=== PATIENT | female | born 1955 | race Caucasian/White ===

== ENCOUNTER 2018-05-02 10:42 | Emergency (ER) | payer BC ==
[2018-05-02] MEDS ORDERED: ONDANSETRON HCL IV 4 MG/2 ML VIAL IVP ONE (10:45)
[2018-05-02] MEDS ORDERED: 0.9 % SODIUM CHLORIDE 1,000 ML BAG IV ONE ×2 (10:45→11:22)
--- NOTE | 2018-05-02 10:50 | Emergency Department Record ---
History of Present Illness - General Chief complaint: Vomiting Stated complaint: VOMITTING Time Seen by Provider: 05/02/18 10:44 Source: Patient Mode of Arrival: Ambulatory Limitations: No limitations - History of Present Illness Initial comments: 62 yo female presents with nausea that started Saturday evening. The nausea with vomiting continued into this morning. No diarrhea or abdominal pain. She has sinus pressure and drainage as well. She reports a history of COPD that is at its baseline. She has Crohn's that is also at its baseline with some loose stools that are normal for her. No abdominal pain or blood. No fever. No dysuria. MD complaint: Nausea, Vomiting -: Days(s) (2) Description of Vomiting: Watery Description of Diarrhea: Water Location: Other Radiation: None Severity: Mild Quality: Cramping Consistency: Intermittent Improves with: None Worsens with: Eating Context: Other Associated Symptoms: Cough (chronic unchanged), Loss of appetite, Malaise, Myalgias - Related Data Home Medications Medication Instructions Recorded Confirmed Last Taken Prednisone 5 mg PO DAILY 05/02/18 05/02/18 04/30/18 Previous Rx's Medication Instructions Recorded Albuterol Sulfate 0.083% [Neb] 2.5 mg INH RESP.Q2H PRN #30 01/29/18 nebulization solution Albuterol Sulfate [Proair Hfa] 1 - 2 inhaler IH .EVERY 4-6 HOURS 01/29/18 PRN #1 puff Ipratropium/Albuterol [Duoneb] 3 ml INH Q4H #180 ampul.neb 01/29/18 Sodium Chloride 7% For INH 4 ml INH DAILY PRN #15 vial.neb 01/29/18 [Hyper-Akash] Ondansetron [Zofran Odt] 4 mg PO Q8H #15 tab.rapdis 05/02/18 Allergies Allergy/AdvReac Type Severity Reaction Status Date / Time penicillin V Allergy Intermediate RASH Unverified 05/02/18 11:03 Review of Systems Constitutional: Reports: Fever (subjective but no temperature was taken), Malaise. Denies: Chills Eyes: Denies: Eye discharge, Eye pain, Photophobia, Vision change ENT: Reports: Congestion. Denies: Ear pain Respiratory: Reports: Cough, Wheezes. Denies: Dyspnea, Hemoptysis, Stridor Cardiovascular: Denies: Chest pain, Palpitations, Syncope Endocrine: Reports: Fatigue Gastrointestinal: Reports: Nausea, Vomiting. Denies: Abdominal pain, Constipation, Diarrhea, Hematemesis, Hematochezia, Melena Genitourinary: Denies: Dysuria, Frequency, Hematuria, Urgency Musculoskeletal: Reports: Myalgia. Denies: Arthralgia, Back pain Skin: Denies: Bruising, Change in color, Rash Neurological: Denies: Confusion, Headache, Numbness, Tingling, Vertigo, Weakness Psychiatric: Denies: Anxiety Hematological/Lymphatic: Denies: Blood Clots, Easy bleeding, Easy bruising, Swollen glands Past Medical History - SOCIAL HISTORY Smoking Status: Current every day smoker Drug Use: None - RESPIRATORY Hx Respiratory Disorders: Yes Hx Asthma: No Hx Bronchitis: No Hx COPD: Yes Hx Dyspnea: No Hx Pneumonia: No Hx Pulmonary Embolism: No Hx Sleep Apnea: No Hx of CPAP: No - CARDIOVASCULAR Hx Cardio Disorders: No - NEURO Hx Neuro Disorders: No - GI Hx GI Disorders: Yes Hx Abdominal Pain: Yes Hx Celiac Disease: No Hx Crohn's Disease: Yes Hx Diverticulitis: No Hx GI Bleed: No Hx Reflux: No Hx Hepatitis/Jaundice: No Hx Hiatal Hernia: No Hx Irritable Bowel: No Hx Liver Disease: No Hx Nausea/Vomiting: No Hx Obstructive Bowel: No Hx Pancreatitis: No Hx Rectal Bleeding: No Hx Ulcer: No Hx Wt Loss/Wt Gain: No Hx of Polyps: No - Hx Genitourinary Disorders: No - ENDOCRINE Hx Endocrine Disorders: No - MUSCULOSKELETAL Hx Musculoskeletal Disorders: No - PSYCH Hx Psych Problems: No - HEMATOLOGY/ONCOLOGY Hx Hematology/Oncology Disorders: No Family Medical History Hx Alcohol Use: Children Hx Cancer: Mother Hx Dementia: Father Hx Resp Disorders: Father Hx Seizures: Children Hx Stroke: Father Physical Exam - General General Appearance: Alert, Oriented x3, Cooperative, No acute distress Limitations: No limitations - Head Head exam: Atraumatic, Normal inspection - Eye Eye exam: Normal appearance. negative: Conjunctival injection, Scleral icterus - ENT ENT exam: Normal exam, Mucous membranes moist, Normal orophraynx Ear exam: Normal external inspection Nasal Exam: Normal inspection Mouth exam: Normal external inspection - Neck Neck exam: Normal inspection - Respiratory Respiratory exam: Decreased breath sounds, Prolonged expiratory, Wheezes (mild expiratory, non labored). negative: Normal lung sounds bilaterally, Accessory muscle use, Respiratory distress, Rhonchi - Cardiovascular Cardiovascular Exam: Regular rate, Normal rhythm, Normal heart sounds - GI/Abdominal GI/Abdominal exam: Soft. negative: Distended, Guarding, Rebound, Rigid, Tenderness - Rectal Rectal exam: Deferred - exam: Deferred - Extremities Extremities exam: Normal inspection. negative: Pedal edema, Tenderness - Back Back exam: Denies: CVA tenderness (R), CVA tenderness (L) - Neurological Neurological exam: Alert, Oriented X3 - Psychiatric Psychiatric exam: Normal affect, Normal mood - Skin Skin exam: Dry, Intact, Normal color, Warm Course - Reevaluation(s) Reevaluation #1: 05/02/18 11:53 The labs were reviewed The CBC demonstrated WBC of 16.7 The CMP AG was 20, TBili was 1.5 but normal LFT's and Lipase 05/02/18 11:55 05/02/18 12:02 On recheck the patient is feeling better. She states her nausea is now controlled. She has no abdominal pain. On palpation the abdomen is very soft, it is non tender. 05/02/18 12:19 The patient is refusing a CT at this time. She is feeling improved. She wants to try a PO challenge first. PO challenged ordered. 05/02/18 13:02 The patient is tolerating soup well She was given the option for Observation for IVF and anti-emetics. She declined. She states she is feeling better and she wants to be discharged. She is getting IV KCL at this time resting comfortably. 05/02/18 16:47 The KCL is finished She still has no pain or nausea She is ready for DC We again discussed home dehydration care, reasons for immediate return and a recheck tomorrow if not doing very well. Medical Decision Making - Lab Data Result diagrams: 05/02/18 10:50 05/02/18 10:50 Disposition Disposition: Discharge Clinical Impression: Hypokalemia Vomiting Qualifiers: Vomiting type: unspecified Disposition: Home, Self-Care Condition: (1) Good Instructions: Dehydration (ED), Acute Nausea and Vomiting (ED) Additional Instructions: Return to ED if your symptoms worsen or if you have any new concerns. Take the prescriptions provided today as directed. Follow-up with your family doctor at the next available appointment. Review the final Emergency Record and test results with your doctor on follow up Return in the next 12 to 24 hours if any vomiting returns, fever, or pain Prescriptions: Ondansetron [Zofran Odt] 4 mg PO Q8H #15 tab.rapdis Forms: Patient Portal Access Time of Disposition: 16:49 Quality - Quality Measures Quality Measures: N/A - Blood Pressure Screening Does Patient Have Any of the Following: No Blood Pressure Classification: Normal BP Reading Systolic Measurement: 107 Diastolic Measurement: 76 Screening for High Blood Pressure: < Normal BP, F/U Not Required > [G8783]
[2018-05-02 11:23] LABS: HEMATOCRIT 48.6 % (35.0-47.0); HEMOGLOBIN 16.4 gm/dl (11.6-16.0); MEAN CELL VOLUME 89.7 fl (81-97); MEAN CORPUSCULAR HGB CONC 33.7 g/dl (32-36); MEAN PLATELET VOLUME 9.4 fl (7.4-10.4); PLATELET COUNT 313 K/uL (130-400); RED BLOOD COUNT 5.42 M/uL (3.80-5.40); RED CELL DISTRIBUTION WIDTH 14.4 % (11.5-14.5); WHITE BLOOD COUNT W/O DIFF 16.7 K/uL (4.2-12.2)
[2018-05-02 11:29] LABS: MEAN CORPUSCULAR HEMOGLOBIN 30.2 pg (27-33)
[2018-05-02 11:34] LABS: BLOOD UREA NITROGEN 20 mg/dL (8-23)
[2018-05-02 11:35] LABS: CREATININE 0.9 mg/dL (0.5-0.9); EST GLOMERULAR FILTRATION RATE > 60 mL/min; TOTAL PROTEIN 7.1 g/dL (6.6-8.7)
[2018-05-02 11:37] LABS: GLUCOSE,RANDOM 184 mg/dL (74-109)
[2018-05-02 11:40] LABS: ALB/GLOB RATIO 1.2 (1.1-1.8); ALBUMIN 3.8 g/dL (4.0-5.0); ALKALINE PHOSPHATASE 94 U/L (35-104); ALT/SGPT 10 U/L (<33); AST/SGOT 18 U/L (10.0-35.0); LIPASE 13 U/L (13-60)
[2018-05-02] MEDS ORDERED: POTASSIUM BICARB./CIT AC 25 MEQ EFF.TAB PO STA (12:03)
[2018-05-02] MEDS ORDERED: SOD CHLOR 0.9% WITH KCL 40MEQ 40 MEQ/1,000 ML IV.SOLN IV ONE (12:13)
[2018-05-02 15:17] LABS: URINE APPEARANCE CLEAR; URINE BILIRUBIN NEGATIVE (NEGATIVE); URINE BLOOD TRACE-I (NEGATIVE); URINE COLOR YELLOW; URINE GLUCOSE (UA) NEGATIVE (NEGATIVE); URINE KETONE NEGATIVE (NEGATIVE); URINE LEUKOCYTE ESTERASE NEGATIVE (NEGATIVE); URINE NITRITE NEGATIVE (NEGATIVE); URINE PROTEIN NEGATIVE (NEGATIVE); URINE UROBILINOGEN 0.2 E.U./dL (0.20 - 1.00)
[2018-05-02 15:31] LABS: URINE EPITHELIAL CELLS 0 - 2 (FEW); URINE WBC 0 - 2 (0-2/hpf)
== END 2018-05-02 17:10 | disposition home or self-care (01) ==
LOC: ER 10:42
DX: E87.6 Hypokalemia (principal); E86.0 Dehydration; J44.9 Chronic obstructive pulmonary disease, unspecified; F17.210 Nicotine dependence, cigarettes, uncomplicated
CPT/HCPCS: 99284 ×2; 96374; 96361; 83690; 80053; 81001; 85027; J2405; J7030

== ENCOUNTER 2019-12-17 04:39 | Observation (INO) | payer MEDICARE, OTHER ==
[2019-12-17] MEDS ORDERED: 0.9 % SODIUM CHLORIDE 1,000 ML BAG IV ONE (05:01)
[2019-12-17] MEDS ORDERED: ONDANSETRON HCL IV 4 MG/2 ML VIAL IVP ONE (05:02)
[2019-12-17] MEDS: IPRATROPIUM/ALBUTEROL (0.5MG/3MG) NEB INH SCH ×6 (05:05→21:55)
--- NOTE | 2019-12-17 05:09 | Emergency Department Record ---
History of Present Illness - General Chief complaint: Flu Like Symptoms Stated complaint: FLU LIKE SYMPTOMS Time Seen by Provider: 12/17/19 04:54 Source: Patient Mode of Arrival: Ambulatory Limitations: No limitations - History of Present Illness Initial comments: The patient is here due to not feeling well for 4 days. She has had 4 days of frequent nausea, vomiting, and loose watery stools. The patient was coughing for the last few days but that is better today She has had mild SOB at times and does have sputum production at times. The patient denies any CP, back pain, or VARNER presently and she denies any fever. She was exposed to Influenza recently and did not get a flu shot. MD Complaint: Generalized weakness Onset/Timin -: Days(s) Location: Generalized Severity: Moderate Severity scale (1-10): 5 Quality: Aching Consistency: Getting worse Improves with: None Worsens with: None Associated Symptoms: Fever/chills, Headaches, Nausea/vomiting, Shortness of breath - [place] Coma Scale Eye Response: (4) Open spontaneously Motor Response: (6) Obeys commands Verbal Response: (5) Oriented Mahi Total: 15 - Related Data Previous Rx's Medication Instructions Recorded Ipratropium/Albuterol [Duoneb] 3 ml INH Q4H #180 ampul.neb 01/29/18 Allergies Allergy/AdvReac Type Severity Reaction Status Date / Time penicillin V Allergy Intermediate RASH Verified 12/17/19 05:41 Travel/Exposure Screening - Travel/Exposure Within Last 30 Days Have you traveled within the last 30 days?: No - Travel/Exposure Within Last Year Have you traveled outside the [place] in the last year?: No - Additonal Travel/Exposure Details Have you been exposed to anyone with a communicable illness?: No - Travel Symptoms Symptom Screening: None Review of Systems Constitutional: Reports: Malaise. Denies: Chills, Fever, Other ENT: Reports: Congestion Respiratory: Reports: Cough, Dyspnea. Denies: Hemoptysis Cardiovascular: Denies: Chest pain Endocrine: Reports: Fatigue Gastrointestinal: Reports: Diarrhea, Nausea, Vomiting Genitourinary: Denies: Dysuria Musculoskeletal: Denies: Arthralgia Skin: Denies: Bruising Past Medical History - SOCIAL HISTORY Smoking Status: Current every day smoker Alcohol Use: None Drug Use: None - RESPIRATORY Hx Respiratory Disorders: Yes Hx Asthma: No Hx Bronchitis: No Hx COPD: Yes Hx Dyspnea: No Hx Pneumonia: No Hx Pulmonary Embolism: No Hx Sleep Apnea: No Hx of CPAP: No - CARDIOVASCULAR Hx Cardio Disorders: Yes Hx Hypertension: Yes - NEURO Hx Neuro Disorders: No - GI Hx GI Disorders: Yes Hx Abdominal Pain: Yes Hx Celiac Disease: No Hx Crohn's Disease: Yes Hx Diverticulitis: No Hx GI Bleed: No Hx Reflux: No Hx Hepatitis/Jaundice: No Hx Hiatal Hernia: No Hx Irritable Bowel: No Hx Liver Disease: No Hx Nausea/Vomiting: No Hx Obstructive Bowel: No Hx Pancreatitis: No Hx Rectal Bleeding: No Hx Ulcer: No Hx Wt Loss/Wt Gain: No Hx of Polyps: No - Hx Genitourinary Disorders: No - ENDOCRINE Hx Endocrine Disorders: No - MUSCULOSKELETAL Hx Musculoskeletal Disorders: No - PSYCH Hx Psych Problems: No - HEMATOLOGY/ONCOLOGY Hx Hematology/Oncology Disorders: No Family Medical History Any Significant Family History?: Yes Hx Alcohol Use: Children Hx Cancer: Mother Hx Dementia: Father Hx Resp Disorders: Father Hx Seizures: Children Hx Stroke: Father Physical Exam - General General Appearance: Alert, Oriented x3, Cooperative, No acute distress (The patient is speaking in full sentences in no distress. She intially was hypoxic on presentation but was not wearing her home O2. ) - Head Head exam: Atraumatic, Normocephalic, Normal inspection - Eye Eye exam: Normal appearance - ENT Throat exam: Normal inspection. negative: Tonsillar erythema, Tonsillar exudate - Neck Neck exam: Normal inspection, Full ROM. negative: Tenderness - Respiratory Respiratory exam: Decreased breath sounds, Wheezes (few at the bases.). negative: Normal lung sounds bilaterally, Accessory muscle use, Rhonchi, Stridor - Cardiovascular Cardiovascular Exam: Regular rate, Normal rhythm, Normal heart sounds. negative: Diastolic murmur, Systolic murmur - GI/Abdominal GI/Abdominal exam: Soft, Normal bowel sounds. negative: Tenderness - Extremities Extremities exam: Normal inspection, Full ROM, Normal capillary refill. negative: Tenderness - Neurological Neurological exam: Alert, Normal gait. negative: Abnormal gait, Motor sensory deficit - Psychiatric Psychiatric exam: negative: Anxious Course Vital Signs 12/17/19 12/17/19 04:51 05:02 Temperature 98.8 F Pulse Rate [ 119 H 74 Pulse Ox Probe] Respiratory 28 H Rate Blood Pressure 137/92 [Left Arm] Pulse Ox 82 L 98 - Reevaluation(s) Reevaluation #1: The patient is doing better at this time. She is still mildly dyspneic with decreased breath sounds on exam. She is coughing up colored sputum and does have a bandemia on her CBC and a high CRP. The CXR does appear consistent with COPD but without any obvious acute infiltrate but I do believe due to her mild dehydration she probably will develop one with hydration. We will admit the patient to the hospital on IV Abx's and for further monitoring. 12/17/19 05:49 Reevaluation #2: The patient is doing better at this time. She is speaking in full sentences with a biox of 94% on 3 L of O2. On exam she is still wheezing mildly but feels improved from when she presented to the ER. 12/17/19 06:13 Medical Decision Making - Data Complexity MDM Data: Labs Ordered and/or Reviewed, X-Ray Ordered and/or Reviewed, EKG Ordered and/or Reviewed - Lab Data Result diagrams: 12/17/19 05:00 12/17/19 05:00 - EKG Data -: EKG Interpreted by Me EKG: No Acute Changes, Unchanged From Previous - Radiology Data Radiology results: Report reviewed (CXR: COPD) Disposition Disposition: Admit Clinical Impression: COPD exacerbation Disposition: Still a Patient at [facility] Decision to Admit: Admit from ER Decision to Admit Date: 12/17/19 Decision to Admit Time: 05:52 Accepting Physician: Sp Time Discussed w/Accepting Physician: 05:52 Condition: (2) Stable Forms: Patient Portal Access Time of Disposition: 05:52 Quality - Quality Measures Quality Measures: N/A - Blood Pressure Screening View Details: Yes Does Patient Have Any of the Following: No Blood Pressure Classification: Pre-Hypertensive BP Reading Systolic Measurement: 123 Diastolic Measurement: 76 Screening for High Blood Pressure: < Pre-Hypertensive BP, F/U Documented > [G8950] Pre-Hypertensive Follow-up Interventions: Referral to alternative/primary care provider.
[2019-12-17 05:11] LABS: ABSOLUTE NEUTROPHIL COUNT 9.19; BASO % 0.2 % (0-6); HEMOGLOBIN 17.1 gm/dl (11.6-16.0); LYMPH % 6.8 % (16-45); MEAN CELL VOLUME 87.7 fl (81-97); MEAN CORPUSCULAR HEMOGLOBIN 28.3 pg (27-33); MEAN CORPUSCULAR HGB CONC 32.3 g/dl (32-36); MEAN PLATELET VOLUME 9.2 fl (7.4-10.4); MONO % 5.2 % (0-9); PLATELET COUNT 247 K/uL (130-400); RED BLOOD COUNT 6.04 M/uL (3.80-5.40); WHITE BLOOD COUNT W/O DIFF 10.5 K/uL (4.2-12.2)
[2019-12-17 05:20] LABS: BLOOD UREA NITROGEN 15 mg/dL (8-23); CREATININE 0.7 mg/dL (0.5-0.9); EST GLOMERULAR FILTRATION RATE > 60 mL/min; LIPASE 14 U/L (13-60); TOTAL PROTEIN 7.2 g/dL (6.6-8.7)
[2019-12-17 05:22] LABS: GLUCOSE,RANDOM 149 mg/dL (74-109)
[2019-12-17 05:24] LABS: ANISOCYTOSIS 1+; PLATELET ESTIMATE NORMAL (NORMAL)
[2019-12-17 05:25] LABS: ALBUMIN 3.9 g/dL (4.0-5.0); ALKALINE PHOSPHATASE 84 U/L (35-104); ALT/SGPT 26 U/L (<33); AST/SGOT 46 U/L (10.0-35.0)
[2019-12-17 05:26] LABS: BILIRUBIN,DIRECT < 0.2 mg/dL (0-0.3); INFLUENZA A POSITIVE (NEGATIVE); INFLUENZA B NEGATIVE (NEGATIVE)
[2019-12-17] MEDS ORDERED: METHYLPREDNISOLONE PF 125MG/VIAL IVP ONE (05:36)
[2019-12-17] MEDS ORDERED: ALBUTEROL SULFATE (0.083%) 2.5 MG/3 ML NEB INH ONE (05:37)
--- NOTE | 2019-12-17 05:39 | RADIOLOGY REPORT ---
EXAMINATION: Two View Chest Radiographs EXAM DATE: 12/17/2019 5:35 AM TECHNIQUE: Frontal and lateral views INDICATION: cough COMPARISON: None ENCOUNTER: Not applicable FINDINGS: The heart, mediastinum, and pulmonary vasculature are normal. No lung consolidation or pleural effu sions are present. Lungs are hyperinflated. IMPRESSION: Hyperinflated lungs. No acute process Dictated by: Asuncion Amaral DO on 12/17/2019 5:37 AM. .
[2019-12-17] MEDS ORDERED: LEVOFLOXACIN/D5W 750 MG/150 ML BAG IVPB ONE (05:54)
[2019-12-17] MEDS ORDERED: KETOROLAC 30 MG/ML VIAL IVP ONE (06:06)
[2019-12-17] MEDS ORDERED: IPRATROPIUM/ALBUTEROL (0.5MG/3MG) NEB INH SCH (07:55)
[2019-12-17] MEDS ORDERED: ACETAMINOPHEN 325 MG TAB PO PRN (07:55)
[2019-12-17] MEDS ORDERED: 0.9 % SODIUM CHLORIDE 1000ML 1,000 ML IV ONE (07:55)
[2019-12-17] MEDS: MONTELUKAST SODIUM 10MG TABLET PO SCH (09:27)
[2019-12-17] MEDS: LORATADINE 10 MG TABLET PO SCH (09:28)
[2019-12-17] MEDS: TRIAMTERENE 37.5/HCTZ 25 CAPSULE PO SCH (09:28)
[2019-12-17] MEDS ORDERED: ALBUTEROL SULFATE (0.083%) 2.5 MG/3 ML NEB INH PRN (10:02)
--- NOTE | 2019-12-17 10:39 | History & Physical ---
History of Present Illness - Date of Service Date of Service for History & Physical: 12/17/19 - History of Present Illness Admitting Diagnosis: 1. Acute COPD Exacerbation with Influenza. History of Present Illness: 63 year old female patient presented to ED for complaints of increased SOB and cough worsening over the last 4 days. Patient noted a few episodes of nausea/vomiting/diarrhea as well, but reports that has resolved. Notes her grandson was diagnosed with influenza over the weekend. Patient reports a productive cough of thick sputum. Denies CP, headache, fever, chills, or abdominal pain. Patient reports a PMH of COPD with intermittent home oxygen use and HTN. PCP: Stephanie Guthrie NP ED Course: CXR: hyperinflated lungs, no acute process Influenza A positive WBC 10.5, bands 13 CRP 18.17 Levaquin 750mg IVPB q24h 12/17/19: Patient A&O x 4, resting comfortably in bed. Mild conversational dyspnea with occasional cough noted. Reports mild improvement in symptoms since admission. Travel/Exposure Screening - Travel/Exposure Within Last 30 Days Have you traveled within the last 30 days?: No - Travel/Exposure Within Last Year Have you traveled outside the [place] in the last year?: No - Additonal Travel/Exposure Details Have you been exposed to anyone with a communicable illness?: No - Travel Symptoms Symptom Screening: None Review of Systems Reviewed: No additional complaints except as noted below Constitutional: Reports: Malaise. Denies: Chills, Fever, Other ENT: Reports: Congestion Respiratory: Reports: Cough, Dyspnea. Denies: Hemoptysis Cardiovascular: Denies: Chest pain Endocrine: Reports: Fatigue Gastrointestinal: Reports: Diarrhea, Nausea, Vomiting Genitourinary: Denies: Dysuria Musculoskeletal: Denies: Arthralgia Skin: Denies: Bruising Past Medical History - SOCIAL HISTORY Smoking Status: Current every day smoker Alcohol Use: None Drug Use: None - RESPIRATORY Hx Respiratory Disorders: Yes Hx Asthma: No Hx Bronchitis: No Hx COPD: Yes Hx Dyspnea: No Hx Pneumonia: No Hx Pulmonary Embolism: No Hx Sleep Apnea: No Hx of CPAP: No - CARDIOVASCULAR Hx Cardio Disorders: Yes Hx Hypertension: Yes - NEURO Hx Neuro Disorders: No - GI Hx GI Disorders: Yes Hx Abdominal Pain: Yes Hx Celiac Disease: No Hx Crohn's Disease: Yes Hx Diverticulitis: No Hx GI Bleed: No Hx Reflux: No Hx Hepatitis/Jaundice: No Hx Hiatal Hernia: No Hx Irritable Bowel: No Hx Liver Disease: No Hx Nausea/Vomiting: No Hx Obstructive Bowel: No Hx Pancreatitis: No Hx Rectal Bleeding: No Hx Ulcer: No Hx Wt Loss/Wt Gain: No Hx of Polyps: No - Hx Genitourinary Disorders: No - ENDOCRINE Hx Endocrine Disorders: No Hx Diabetes: No Hx Thyroid Disease: No - MUSCULOSKELETAL Hx Musculoskeletal Disorders: No - PSYCH Hx Psych Problems: No - HEMATOLOGY/ONCOLOGY Hx Hematology/Oncology Disorders: No Family Medical History Any Significant Family History?: Yes Hx Alcohol Use: Children Hx Cancer: Mother Hx Dementia: Father Hx Resp Disorders: Father Hx Seizures: Children Hx Stroke: Father H&P Meds/Allergies - Allergies Allergies: Allergies Allergy/AdvReac Type Severity Reaction Status Date / Time penicillin V Allergy Intermediate RASH Verified 12/17/19 05:41 - Home Medications Previous Rx's Medication Instructions Recorded Ipratropium/Albuterol [Duoneb] 3 ml INH Q4H #180 ampul.neb 01/29/18 - Active Medications Active Medications: Current Medications Acetaminophen (Tylenol 325mg) 650 mg PO Q6H PRN PRN Reason: PAIN - MILD(1-4)/FEVER Albuterol Sulfate (Albuterol Sulfate) 2.5 mg INH Q4H PRN PRN Reason: DIFFICULTY IN BREATHING Albuterol/Ipratropium (Duoneb) 3 ml INH RESP.Q4H.[facility] Last Admin: 12/17/19 08:46 Dose: Not Given Documented by: Sodium Chloride () 1,000 mls @ 100 mls/hr IV .Q10H ONE Stop: 12/17/19 17:54 Levofloxacin/Dextrose (Levaquin 500mg Ivpb) 500 mg in 100 mls @ 125 mls/hr IVPB Q24H [facility] Stop: 12/23/19 06:01 Loratadine (Claritin) 10 mg PO DAILY [facility] Last Admin: 12/17/19 09:28 Dose: 10 mg Documented by: Methylprednisolone Sodium Succinate (Solu-Medrol) 60 mg IVP DAILY [facility] Montelukast Sodium (Singulair) 10 mg PO QD [facility] Last Admin: 12/17/19 09:27 Dose: 10 mg Documented by: Triamterene/HCTZ (Dyazide) 1 udcap PO DAILY [facility] Last Admin: 12/17/19 09:28 Dose: 1 udcap Documented by: Physical Exam - Vital Signs Vital Signs: Vital Signs - Last 24 Hrs Temp Pulse Pulse Resp BP Pulse Ox 12/17/19 08:00 99.9 F H 61 17 106/74 94 L 12/17/19 07:31 99.2 F 111 H 20 94/68 92 L 12/17/19 06:25 99.9 F H 113 H 24 95/68 92 L 12/17/19 06:24 115 H 93 L 12/17/19 05:48 115 H 92 H 20 L 12/17/19 05:44 112 H 26 H 123/76 92 L 12/17/19 05:05 112 H 20 95 12/17/19 05:02 74 98 12/17/19 04:51 98.8 F 119 H 28 H 137/92 82 L - General General Appearance: Alert, Oriented x3, Cooperative, No acute distress Limitations: No limitations - Head Head exam: Atraumatic, Normocephalic, Normal inspection - Eye Eye exam: Normal appearance - ENT ENT exam: Mucous membranes moist Ear exam: Normal external inspection Nasal Exam: Normal inspection Throat exam: negative: Tonsillar erythema, Tonsillar exudate - Neck Neck exam: Normal inspection, Full ROM. negative: Tenderness - Respiratory Respiratory exam: Decreased breath sounds, Wheezes (scattered). negative: Normal lung sounds bilaterally, Accessory muscle use, Rhonchi, Stridor - Cardiovascular Cardiovascular Exam: Regular rate, Normal rhythm, Normal heart sounds. negative : Diastolic murmur, Systolic murmur Peripheral Pulses: 2+: Radial (R), Radial (L), Dorsalis Pedis (R), Dorsalis Pedis (L) - GI/Abdominal GI/Abdominal exam: Soft, Normal bowel sounds. negative: Tenderness - Rectal Rectal exam: Deferred - exam: Deferred - Extremities Extremities exam: Normal inspection, Full ROM, Normal capillary refill. negative: Pedal edema, Tenderness - Neurological Neurological exam: Alert, Oriented X3. negative: Abnormal gait, Motor sensory deficit - Psychiatric Psychiatric exam: Normal affect, Normal mood. negative: Anxious - Skin Skin exam: Dry, Normal color, Warm Results - Labs Result Diagrams: 12/17/19 05:00 12/17/19 05:00 Labs Last 24 Hours: Laboratory Results - last 24 hr 02/20/20 02/20/20 02/20/20 05:00 05:00 05:00 WBC 10.5 RBC 6.04 H Hgb 17.1 H Hct 53.0 H MCV 87.7 MCH 28.3 MCHC 32.3 RDW 15.0 H Plt Count 247 MPV 9.2 Neutrophils % 76.0 Band Neutrophils % 13.0 H Lymphocytes % 6.8 L Monocytes % 5.2 Eosinophils % 0.0 Basophils % 0.2 Absolute Neutrophils 9.19 Lymphocytes 6.0 L Monocytes 5.0 Platelet Estimate Normal Anisocytosis 1+ Sodium 135 L Potassium 3.6 Chloride 90 L Carbon Dioxide 30.0 H Anion Gap 15.0 BUN 15 Creatinine 0.7 Estimated GFR > 60 Random Glucose 149 H Calcium 9.2 Total Bilirubin 0.30 Direct Bilirubin < 0.2 AST 46 H ALT 26 Alkaline Phosphatase 84 C-Reactive Protein Total Protein 7.2 Albumin 3.9 L Lipase 14 Influenza Type A Ag Positive H Influenza Type B Ag Negative 12/17/19 05:00 WBC RBC Hgb Hct MCV MCH MCHC RDW Plt Count MPV Neutrophils % Band Neutrophils % Lymphocytes % Monocytes % Eosinophils % Basophils % Absolute Neutrophils Lymphocytes Monocytes Platelet Estimate Anisocytosis Sodium Potassium Chloride Carbon Dioxide Anion Gap BUN Creatinine Estimated GFR Random Glucose Calcium Total Bilirubin Direct Bilirubin AST ALT Alkaline Phosphatase C-Reactive Protein 18.17 H Total Protein Albumin Lipase Influenza Type A Ag Influenza Type B Ag - Imaging and Cardiology Chest x-ray Status: Report reviewed VTE H&P Assessment - Risk for VTE Risk for VTE: Yes Risk Level: Moderate Risk Assessment Date: 12/17/19 Risk Assessment Time: 10:39 VTE Orders Placed or Will Be Placed: Yes Plan - Detailed Diagnosis and Plan (1) COPD exacerbation Current Visit: Yes Status: Acute Base Code: J44.1 - CHRONIC OBSTRUCTIVE PULMONARY DISEASE W (ACUTE) EXACERBATION Comment: 12/17/19 - CXR no acute process - Hypoxia with increased SOB and cough - WBC 10.3 with 13 bands, started on Levaquin 750mg IVPB q24h in ED - Solumedrol 60mg IVP q8h - Albuterol scheduled q4h with breo - Supplemental oxygen to keep pulse ox >90% (2) Influenza A Current Visit: Yes Status: Acute Base Code: J10.1 - FLU DUE TO OTH IDENT INFLUENZA VIRUS W OTH RESP MANIFEST Comment: 2/20/20 - Influenza A positive - Symptoms present x 4 days, outside window for Tamiflu - Treat supportively with IV hydration - Tylenol and motrin prn (3) DVT prophylaxis Current Visit: Yes Status: Acute Base Code: Z29.9 - ENCOUNTER FOR [place] OPHYLACTIC MEASURES, UNSPECIFIED Comment: 12/17/19 - Moderate risk due to age, illness, and hospitalization - Lovenox 40mg SQ daily (4) Full code status Current Visit: No Status: Acute Base Code: Z78.9 - OTHER SPECIFIED HEALTH STATUS Comment: 12/17/19 - Full code this admission
[2019-12-17] MEDS: BREO (FLUTICASONE/VILANTEROL) 200MCG/25MCG INHALER INH SCH (11:00)
[2019-12-18] MEDS ORDERED: LEVOFLOXACIN 500MG IVPB 500 MG/100 ML BAG IVPB SCH (06:00)
[2019-12-18] MEDS: IPRATROPIUM/ALBUTEROL (0.5MG/3MG) NEB INH SCH ×3 (06:41→15:02)
[2019-12-18 07:15] LABS: ABSOLUTE NEUTROPHIL COUNT 4.77; BASO % 0.2 % (0-6); GRAN % 79.2 % (47-80); HEMATOCRIT 46.5 % (35.0-47.0); HEMOGLOBIN 14.5 gm/dl (11.6-16.0); LYMPH % 12.5 % (16-45); MEAN CELL VOLUME 89.9 fl (81-97); MEAN CORPUSCULAR HGB CONC 31.2 g/dl (32-36); MEAN PLATELET VOLUME 9.4 fl (7.4-10.4); MONO % 8.1 % (0-9); PLATELET COUNT 205 K/uL (130-400); RED BLOOD COUNT 5.17 M/uL (3.80-5.40); RED CELL DISTRIBUTION WIDTH 14.8 % (11.5-14.5)
[2019-12-18 07:37] LABS: ALBUMIN 2.8 g/dL (4.0-5.0); ALKALINE PHOSPHATASE 61 U/L (35-104); ALT/SGPT 17 U/L (<33); AST/SGOT 31 U/L (10.0-35.0); BLOOD UREA NITROGEN 10 mg/dL (8-23); CREATININE 0.5 mg/dL (0.5-0.9); EST GLOMERULAR FILTRATION RATE > 60 mL/min; GLUCOSE,RANDOM 96 mg/dL (74-109); TOTAL PROTEIN 5.5 g/dL (6.6-8.7)
[2019-12-18] MEDS ORDERED: POTASSIUM CHLORIDE 20 MEQ TABLET PO ONE (07:59)
[2019-12-18] MEDS ORDERED: METHYLPREDNISOLONE PF 125MG/VIAL IVP SCH (10:00)
[2019-12-18] MEDS ORDERED: ENOXAPARIN 40 MG/0.4 ML SYR SQ SCH (10:00)
[2019-12-18] MEDS: BREO (FLUTICASONE/VILANTEROL) 200MCG/25MCG INHALER INH SCH (10:40)
[2019-12-18] MEDS: LORATADINE 10 MG TABLET PO SCH (10:43)
[2019-12-18] MEDS: MONTELUKAST SODIUM 10MG TABLET PO SCH (10:43)
[2019-12-18] MEDS: TRIAMTERENE 37.5/HCTZ 25 CAPSULE PO SCH (10:43)
--- NOTE | 2019-12-18 17:11 | Discharge Summary ---
Providers Discharge Summary Date: 12/18/19 Date of admission: 12/17/19 07:42 Expected Date of Discharge: 12/18/19 Attending physician: Chaparro Snowden Primary care physician: Stephanie Guthrie N.P. Physical Exam - Vital Signs Vital Signs: Vital Signs - Last 24 Hrs Temp Pulse Pulse Resp BP Pulse Ox 12/18/19 15:02 89 18 97 12/18/19 13:45 18 87 L 12/18/19 12:00 99.9 F H 92 H 17 116/79 99 12/18/19 10:45 88 18 96 12/18/19 09:00 18 12/18/19 08:00 100.7 F H 90 17 104/73 94 L 12/18/19 06:45 88 14 95 12/18/19 05:00 99.6 F 89 16 132/69 95 12/18/19 00:00 99.1 F 86 16 95 12/17/19 21:00 101 H 18 12/17/19 20:00 99.1 F 101 H 18 144/66 94 L - General General Appearance: Alert, Oriented x3, Cooperative, No acute distress Limitations: No limitations - Head Head exam: Atraumatic, Normocephalic, Normal inspection - Eye Eye exam: Normal appearance, PERRL - ENT ENT exam: Mucous membranes moist Ear exam: Normal external inspection Nasal Exam: Normal inspection Throat exam: negative: Tonsillar erythema, Tonsillar exudate - Neck Neck exam: Normal inspection, Full ROM. negative: Tenderness - Respiratory Respiratory exam: Decreased breath sounds, Wheezes (scattered). negative: Normal lung sounds bilaterally, Accessory muscle use, Rhonchi, Stridor - Cardiovascular Cardiovascular Exam: Regular rate, Normal rhythm, Normal heart sounds. negative: Diastolic murmur, Systolic murmur Peripheral Pulses: 2+: Radial (R), Radial (L), Dorsalis Pedis (R), Dorsalis Pedis (L) - GI/Abdominal GI/Abdominal exam: Soft, Normal bowel sounds. negative: Tenderness - Rectal Rectal exam: Deferred - exam: Deferred - Extremities Extremities exam: Normal inspection, Full ROM, Normal capillary refill. negative: Pedal edema, Tenderness - Neurological Neurological exam: Alert, Oriented X3. negative: Abnormal gait, Motor sensory deficit - Psychiatric Psychiatric exam: Normal affect, Normal mood. negative: Anxious - Skin Skin exam: Dry, Normal color, Warm Hospitalization - Hospitalization Admission Diagnosis: 1. Acute COPD Exacerbation with Influenza. - Problem List/Discharge Diagnosis (1) COPD exacerbation Current Visit: Yes Status: Acute Base Code: J44.1 - CHRONIC OBSTRUCTIVE PULMONARY DISEASE W (ACUTE) EXACERBATION Comment: 12/18/19 - CXR no acute process - Hypoxia with increased SOB and cough, 86% on RA - WBC 10.3 with 13 bands, started on Levaquin 500mg IVPB q24h in ED, continue Levaquin 500mg x 7 days upon discharge - Labs improved, WBC 6 with no bands - Has remained afebrile - Solumedrol 60mg IVP q8h, switch to Prednisone 40mg daily at discharge - Albuterol scheduled q4h with breo - Patient has returned to a chronic stable state with her COPD but is still requring supplemental oxygen at this time to keep pulse ox >90%. Oxygen qualifier completed and patient had oxygen saturation of 86% on room air (2) Influenza A Current Visit: Yes Status: Acute Base Code: J10.1 - FLU DUE TO OTH IDENT IN FLUENZA VIRUS W OTH RESP MANIFEST Comment: 12/18/19 - Influenza A positive - Symptoms present x 4 days, outside window for Tamiflu - Treat supportively with IV hydration, encouraged PO hydration upon discharge - Tylenol and motrin prn (3) DVT prophylaxis Current Visit: Yes Status: Acute Base Code: Z29.9 - ENCOUNTER FOR PROPHYLACTIC MEASURES, UNSPECIFIED Comment: 12/18/19 - Moderate risk due to age, illness, and hospitalization - Lovenox 40mg SQ daily (4) Full code status Current Visit: No Status: Acute Base Code: Z78.9 - OTHER SPECIFIED HEALTH STATUS Comment: 12/18/19 - Full code this admission - Hospitalization Course Disposition: Home, Self-Care Hospital Course: 63 year old female patient presented to ED for complaints of increased SOB and cough worsening over the last 4 days. Patient noted a few episodes of nausea/vomiting/diarrhea as well, but reports that has resolved. Notes her grandson was diagnosed with influenza over the weekend. Patient reports a productive cough of thick sputum. Denies CP, headache, fever, chills, or abdominal pain. Patient reports a PMH of COPD with intermittent home oxygen use, crohn's and HTN. PCP: Stephanie Guthrie NP ED Course: CXR: hyperinflated lungs, no acute process Influenza A positive WBC 10.5, bands 13 CRP 18.17 Levaquin 750mg IVPB q24h 12/17/19: Patient A&O x 4, resting comfortably in bed. Mild conversational dyspnea with occasional cough noted. Reports mild improvement in symptoms since admission. 12/18/19: Patient A&O, reports significant improvement in respiratory status, body aches, and overall fatigue. Will discharge home with Levaquin, Prednisone, and supplemental oxygen. Procedures: Imaging and X-Rays 12/17/19 05:01 CHEST 2 VIEWS [RAD] Stat Cardiology Procedures 12/17/19 06:07 EKG NOW 12/17/19 07:55 Training Development Specialist .Continuous Abnormal Labs: Abnormal Lab Results 12/17/19 12/17/19 12/17/19 Range/Units 05:00 05:00 05:00 RBC 6.04 H (3.80-5.40) M/uL Hgb 17.1 H (11.6-16.0) gm/dl Hct 53.0 H (35.0-47.0) % MCHC (32-36) g/dl RDW 15.0 H (11.5-14.5) % Band Neutrophils % 13.0 H (0-5) % Lymphocytes % 6.8 L (16-45) % Lymphocytes 6.0 L (16-45) % Sodium 135 L (136-145) mmol/L Potassium (3.4-4.5) mmol/L Chloride 90 L (98-107) mmol/L Carbon Dioxide 30.0 H (22-29) mmol/L Random Glucose 149 H (74-109) mg/dL Calcium (8.8-10.2) mg/dL AST 46 H (10.0-35.0) U/L C-Reactive Protein (<0.5) mg/dL Total Protein (6.6-8.7) g/dL Albumin 3.9 L (4.0-5.0) g/dL Albumin/Globulin Ratio (1.1-1.8) Influenza Type A Ag Positive H (NEGATIVE) 12/17/19 12/18/19 12/18/19 Range/Units 05:00 06:17 06:17 RBC (3.80-5.40) M/uL Hgb (11.6-16.0) gm/dl Hct (35.0-47.0) % MCHC 31.2 L (32-36) g/dl RDW 14.8 H (11.5-14.5) % Band Neutrophils % (0-5) % Lymphocytes % 12.5 L (16-45) % Lymphocytes (16-45) % Sodium (136-145) mmol/L Potassium 3.3 L (3.4-4.5) mmol/L Chloride (98-107) mmol/L Carbon Dioxide 33.0 H (22-29) mmol/L Random Glucose (74-109) mg/dL Calcium 8.0 L (8.8-10.2) mg/dL AST (10.0-35.0) U/L C-Reactive Protein 18.17 H (<0.5) mg/dL Total Protein 5.5 L (6.6-8.7) g/dL Albumin 2.8 L (4.0-5.0) g/dL Albumin/Globulin Ratio 1.0 L (1.1-1.8) Influenza Type A Ag (NEGATIVE) Condition at Discharge: (2) Stable Discharge Medications - Discharge Medications Prescriptions: Levofloxacin [Levaquin Tab] 500 mg PO DAILY #8 tab Guaifenesin [Mucinex] 600 mg PO BID #20 tabcr Prednisone [Prednisone 20Mg] 40 mg PO DAILY #8 tab Home Medications: Ambulatory Orders Ipratropium/Albuterol [Duoneb] 3 ml INH Q4H #180 ampul.neb 01/29/18 [Last Taken 12/17/19] Prednisone 5 mg PO QD tab 05/20/19 [Last Taken 12/17/19] Guaifenesin [Mucinex] 600 mg PO BID #20 tabcr 12/18/19 [Last Taken Unknown] Levofloxacin [Levaquin Tab] 500 mg PO DAILY #8 tab 12/18/19 [Last Taken Unknown] Prednisone [Prednisone 20Mg] 40 mg PO DAILY #8 tab 12/18/19 [Last Taken Unknown] Discharge Plan - Discharge Instructions Activity at Discharge: Increase Activity as Tolerated Diet at Discharge: Advance to Usual Diet Instructions: Influenza (DC), COPD (Chronic Obstructive Pulmonary Disease) (DC) Additional Instructions: Levaquin (antibiotic): your next dose is due tomorrow, 12/19/19 Prednisone: increase to 40mg daily x 4 days, taking them in the morning Follow up appointment with Stephanie Guthrie on Saturday, 12/22 at 1:00 at [facility]. [employer] will deliver portable tanks to your home next week, and will let you know the cost of your concentrator with Medicare insurance coverage added. Resume activity as tolerated Resume home diet as tolerated Resume home medications If condition returns or worsens, please return to the emergency department. Thank you for choosing [facility]!! Quality Measures - Quality Measures Quality Measures: Advance Directives, Documentation of Current Medications in Medical Record, Elder Maltreatment Screen and Follow-Up Plan, Screening for High Blood Pressure and F/U Documented - Current Medications Quality Measure: Measure #130: Documentation of Current Medications Documentation of Current Medications: <Current Medications Documented/Reviewed> [G8427] - Blood Pressure Screening Quality Measure: Screening for High Blood Pressure and Follow-Up Documented Does Patient Have Any of the Following: Active Dx of HTN Blood Pressure Classification: Normal BP Reading Systolic Measurement: 116 Diastolic Measurement: 79 Screening for High Blood Pressure: Patient Exclusion, Hx of HTN [G9744] - Advance Directives Quality Measure: Measure #47: Care Plan Advance Directives Established: No Advance Directives Information Provided To Patient: No Advance Directives on File: No Living Will: No Power of Registered Nurse Teacher: Yes () Power of Registered Nurse Teacher Name: SARMAD CHURCH Advance Care Planning: <Care Plan/Decision Maker Documented; Discussed & Documented> [1123F] - Elder Abuse Suspicion Index Screening: Elder Abuse Suspicion Index Screening Rely on people for bathing, dressing, shopping, banking, etc: No Prevented from getting food, clothes, medication, etc: No Made to feel shamed or threatened by someone: No Forced to sign papers or use money against will: No Feel afraid, touched in ways not wanted or hurt physically: No Poor eye contact, withdrawn, malnourished, cuts or bruises: No Screening Result: Negative result EASI Reference Information: Anthony WARNER, Sahra C, Cole Jones, Perez Thomas.Development and validation of a tool to assist physicians identification of elder abuse: The Elder Abuse Suspicion Index (EASI ). Journal of Elder Abuse and Neglect, 2008; 20 (3): 276-300. - Elder Maltreatment Screen Quality Measures: Elder Maltreatment Screen and Follow-Up Plan Elder Maltreatment Screen: <Negative, No Follow-Up Plan Required> [G1227]
== END 2019-12-18 17:34 | disposition home or self-care (01) ==
LOC: ER 04:39 → MEDSURG 07:42
PROVIDERS: ADMIT Internal Medicine; ATTEND Internal Medicine
DX: J44.1 Chronic obstructive pulmonary disease with (acute) exacerbation (principal); J11.1 Influenza due to unidentified influenza virus with other respiratory manifestations; R19.7 Diarrhea, unspecified; I10 Essential (primary) hypertension; K50.90 Crohn's disease, unspecified, without complications; F17.210 Nicotine dependence, cigarettes, uncomplicated
CPT/HCPCS: 71046; 80048; 80053; 80076; 83690; 85025; 85027; 86140; 87400; 93005; 93010; 94640; 94761; 96365; 96366; 96375; 99217; 99220; 99285; J1650; J1885; J1956; J2405; J2930; J7030; J7613

== ENCOUNTER 2019-12-22 14:54 | Emergency (ER) | payer MEDICARE, OTHER ==
[2019-12-22] MEDS ORDERED: 0.9 % SODIUM CHLORIDE 1,000 ML BAG IV ONE (15:46)
[2019-12-22 15:56] LABS: HEMATOCRIT 52.4 % (35.0-47.0); MEAN CORPUSCULAR HEMOGLOBIN 28.2 pg (27-33); MEAN CORPUSCULAR HGB CONC 32.4 g/dl (32-36); MEAN PLATELET VOLUME 9.1 fl (7.4-10.4); PLATELET COUNT 343 K/uL (130-400); RED BLOOD COUNT 6.02 M/uL (3.80-5.40); WHITE BLOOD COUNT W/O DIFF 3.7 K/uL (4.2-12.2)
[2019-12-22 16:08] LABS: BLOOD UREA NITROGEN 18 mg/dL (8-23); CREATININE 0.5 mg/dL (0.5-0.9); EST GLOMERULAR FILTRATION RATE > 60 mL/min
[2019-12-22 16:11] LABS: GLUCOSE,RANDOM 124 mg/dL (74-109)
[2019-12-22 16:13] LABS: ALT/SGPT 54 U/L (<33); AST/SGOT 33 U/L (10.0-35.0)
[2019-12-22 16:14] LABS: ALB/GLOB RATIO 1.3 (1.1-1.8); ALBUMIN 3.9 g/dL (4.0-5.0); ALKALINE PHOSPHATASE 70 U/L (35-104)
--- NOTE | 2019-12-22 16:58 | Emergency Department Record ---
History of Present Illness - General Chief complaint: Nausea, Vomiting, Diarrhea Stated complaint: DIARRHEA Time Seen by Provider: 12/22/19 15:33 Source: Patient, Family Mode of Arrival: Wheelchair Limitations: No limitations - History of Present Illness Initial comments: pt c/o diarrhea 9x today. she was recently admitted for inflenza and was started on levaquin, she has had nonstop diarrhea since going home. she feels weak and dehydrated. no n/v MD complaint: Diarrhea -: Week(s) Description of Diarrhea: Water Associated Abdominal Pain: No Quality: Cramping Consistency: Intermittent Improves with: None Worsens with: Eating Context: Sick contacts Associated Symptoms: Loss of appetite, Nausea/vomiting - Related Data Previous Rx's Medication Instructions Recorded Ipratropium/Albuterol [Duoneb] 3 ml INH Q4H #180 ampul.neb 01/29/18 Guaifenesin [Mucinex] 600 mg PO BID #20 tabcr 12/18/19 Levofloxacin [Levaquin Tab] 500 mg PO DAILY #8 tab 12/18/19 Prednisone [Prednisone 20Mg] 40 mg PO DAILY #8 tab 12/18/19 Allergies Allergy/AdvReac Type Severity Reaction Status Date / Time penicillin V Allergy Intermediate RASH Verified 12/22/19 15:14 Travel/Exposure Screening - Travel/Exposure Within Last 30 Days Have you traveled within the last 30 days?: No - Travel/Exposure Within Last Year Have you traveled outside the [place] in the last year?: No - Additonal Travel/Exposure Details Have you been exposed to anyone with a communicable illness?: No - Travel Symptoms Symptom Screening: Weakness, Diarrhea Review of Systems Reviewed: No additional complaints except as noted below Constitutional: Reports: As per HPI, Fever, Malaise, Weakness. Denies: Chills, Night sweats, Weight change Eyes: Reports: As per HPI. Denies: Eye discharge, Eye pain, Photophobia, Vision change ENT: Reports: As per HPI, Congestion. Denies: Dental pain, Ear pain, Epistaxis, Hearing loss Respiratory: Reports: As per HPI. Denies: Cough, Dyspnea, Hemoptysis, Stridor, Wheezes Cardiovascular: Reports: As per HPI. Denies: Arrhythmia, Chest pain, Dyspnea on exertion, Edema, Murmurs, Orthopnea, Palpitations, Paroxysmal nocturnal dyspnea, Rheumatic Fever, Syncope Endocrine: Reports: As per HPI. Denies: Fatigue, Heat or cold intolerance, Polydipsia, Polyuria Gastrointestinal: Reports: As per HPI, Abdominal pain, Diarrhea. Denies: Constipation, Hematemesis, Hematochezia, Melena, Nausea, Vomiting Genitourinary: Reports: As per HPI. Denies: Discharge, Dyspareunia, Dysuria, Frequency, Incontinence, Retention, Urgency Musculoskeletal: Reports: As per HPI. Denies: Arthralgia, Back pain, Gout, Joint swelling, Myalgia, Neck pain Skin: Reports: As per HPI. Denies: Bruising, Lesions, Pruritus, Rash Neurological: Reports: As per HPI. Denies: Confusion, Headache, Numbness, Paresthesias, Tingling, Tremors, Vertigo, Weakness Psychiatric: Reports: As per HPI. Denies: Anxiety, Auditory hallucinations, Depression, Homicidal thoughts Hematological/Lymphatic: Reports: As per HPI. Denies: Anemia, Blood Clots, Swollen glands Past Medical History - SOCIAL HISTORY Smoking Status: Current every day smoker Alcohol Use: None Drug Use: None - RESPIRATORY Hx Respiratory Disorders: Yes Hx Asthma: No Hx Bronchitis: No Hx COPD: Yes Hx Dyspnea: No Hx Pneumonia: No Hx Pulmonary Embolism: No Hx Sleep Apnea: No Hx of CPAP: No - CARDIOVASCULAR Hx Cardio Disorders: Yes Hx Hypertension: Yes - NEURO Hx Neuro Disorders: No - GI Hx GI Disorders: Yes Hx Abdominal Pain: Yes Hx Celiac Disease: No Hx Crohn's Disease: Yes Hx Diverticulitis: No Hx GI Bleed: No Hx Reflux: No Hx Hepatitis/Jaundice: No Hx Hiatal Hernia: No Hx Irritable Bowel: No Hx Liver Disease: No Hx Nausea/Vomiting: No Hx Obstructive Bowel: No Hx Pancreatitis: No Hx Rectal Bleeding: No Hx Ulcer: No Hx Wt Loss/Wt Gain: No Hx of Polyps: No - Hx Genitourinary Disorders: No - ENDOCRINE Hx Endocrine Disorders: No Hx Diabetes: No Hx Thyroid Disease: No - MUSCULOSKELETAL Hx Musculoskeletal Disorders: No - PSYCH Hx Psych Problems: No - HEMATOLOGY/ONCOLOGY Hx Hematology/Oncology Disorders: No Family Medical History Any Significant Family History?: No Hx Alcohol Use: Children Hx Cancer: Mother Hx Dementia: Father Hx Resp Disorders: Father Hx Seizures: Children Hx Stroke: Father Course Vital Signs 12/22/19 12/22/19 15:04 16:33 Temperature 98.2 F Pulse Rate 98 H Pulse Rate [ 82 Pulse Ox Probe] Respiratory 19 16 Rate Blood Pressure 132/83 [Left Arm] Pulse Ox 83 L 98 - Reevaluation(s) Reevaluation #1: 12/22/19 18:23 pt feels better. Reevaluation #2: 12/22/19 19:02 pt unable to give a stool sample still. she feels much better Medical Decision Making - Lab Data Result diagrams: 12/22/19 15:20 12/22/19 15:20 Lab Results 12/22/19 12/22/19 Range/Units 15:20 15:20 WBC 3.7 L (4.2-12.2) K/uL RBC 6.02 H (3.80-5.40) M/uL Hgb 17.0 H (11.6-16.0) gm/dl Hct 52.4 H (35.0-47.0) % MCV 87.0 (81-97) fl MCH 28.2 (27-33) pg MCHC 32.4 (32-36) g/dl RDW 14.0 (11.5-14.5) % Plt Count 343 (130-400) K/uL MPV 9.1 (7.4-10.4) fl Neutrophils % 80.0 (47-80) % Eosinophils % Not Reportable Basophils % Not Reportable Absolute Neutrophils Not Reportable Lymphocytes 14.0 L (16-45) % Monocytes 6.0 (0-9) % Sodium 138 (136-145) mmol/L Potassium 3.6 (3.4-4.5) mmol/L Chloride 90 L (98-107) mmol/L Carbon Dioxide 35.0 H (22-29) mmol/L Anion Gap 13.0 (7-16) BUN 18 (8-23) mg/dL Creatinine 0.5 (0.5-0.9) mg/dL Estimated GFR > 60 mL/min Random Glucose 124 H (74-109) mg/dL Calcium 9.7 (8.8-10.2) mg/dL Total Bilirubin 0.60 (0.2-1.0) mg/dL AST 33 (10.0-35.0) U/L ALT 54 H (<33) U/L Alkaline Phosphatase 70 (35-104) U/L Total Protein 7.0 (6.6-8.7) g/dL Albumin 3.9 L (4.0-5.0) g/dL Globulin 3.1 (1.4-4.8) gm/dL Albumin/Globulin Ratio 1.3 (1.1-1.8) Disposition Disposition: Discharge Clinical Impression: Dehydration Diarrhea Qualifiers: Diarrhea type: unspecified type Qualified Code(s): R19.7 - Diarrhea, unspecified Disposition: Home, Self-Care Condition: (1) Good Instructions: Dehydration (ED), Acute Diarrhea (ED) Forms: Patient Portal Access Quality - Quality Measures Quality Measures: N/A - Blood Pressure Screening Does Patient Have Any of the Following: No Blood Pressure Classification: Hypertensive Reading Systolic Measurement: 156 Diastolic Measurement: 91 Screening for High Blood Pressure: < First Hypertensive BP, F/U Documented > [G8950] First Hypertensive Follow-up Interventions: Follow-up with rescreen GT 1 day and LT 4 weeks.
[2019-12-22] MEDS ORDERED: ONDANSETRON HCL IV 4 MG/2 ML VIAL IVP ONE (18:21)
--- NOTE | 2019-12-22 19:06 | Emergency Department Record ---
History of Present Illness - General Chief complaint: Nausea, Vomiting, Diarrhea Stated complaint: DIARRHEA Time Seen by Provider: 12/22/19 15:33 Source: Patient, Family Mode of Arrival: Wheelchair Limitations: No limitations - History of Present Illness MD complaint: Diarrhea -: Week(s) Description of Diarrhea: Water Associated Abdominal Pain: No Quality: Cramping Consistency: Intermittent Improves with: None Worsens with: Eating Context: Sick contacts Associated Symptoms: Loss of appetite, Nausea/vomiting - Related Data Previous Rx's Medication Instructions Recorded Ipratropium/Albuterol [Duoneb] 3 ml INH Q4H #180 ampul.neb 01/29/18 Guaifenesin [Mucinex] 600 mg PO BID #20 tabcr 12/18/19 Levofloxacin [Levaquin Tab] 500 mg PO DAILY #8 tab 12/18/19 Prednisone [Prednisone 20Mg] 40 mg PO DAILY #8 tab 12/18/19 Allergies Allergy/AdvReac Type Severity Reaction Status Date / Time penicillin V Allergy Intermediate RASH Verified 12/22/19 15:14 Travel/Exposure Screening - Travel/Exposure Within Last 30 Days Have you traveled within the last 30 days?: No - Travel/Exposure Within Last Year Have you traveled outside the [place] in the last year?: No - Additonal Travel/Exposure Details Have you been exposed to anyone with a communicable illness?: No - Travel Symptoms Symptom Screening: Weakness, Diarrhea Review of Systems Constitutional: Reports: As per HPI, Fever, Malaise, Weakness. Denies: Chills, Night sweats, Weight change Eyes: Reports: As per HPI. Denies: Eye discharge, Eye pain, Photophobia, Vision change ENT: Reports: As per HPI, Congestion. Denies: Dental pain, Ear pain, Epistaxis, Hearing loss Respiratory: Reports: As per HPI. Denies: Cough, Dyspnea, Hemoptysis, Stridor, Wheezes Cardiovascular: Reports: As per HPI. Denies: Arrhythmia, Chest pain, Dyspnea on exertion, Edema, Murmurs, Orthopnea, Palpitations, Paroxysmal nocturnal dyspnea, Rheumatic Fever, Syncope Endocrine: Reports: As per HPI. Denies: Fatigue, Heat or cold intolerance, Polydipsia, Polyuria Gastrointestinal: Reports: As per HPI, Abdominal pain, Diarrhea. Denies: Const ipation, Hematemesis, Hematochezia, Melena, Nausea, Vomiting Genitourinary: Reports: As per HPI. Denies: Discharge, Dyspareunia, Dysuria, Frequency, Incontinence, Retention, Urgency Musculoskeletal: Reports: As per HPI. Denies: Arthralgia, Back pain, Gout, Joint swelling, Myalgia, Neck pain Skin: Reports: As per HPI. Denies: Bruising, Lesions, Pruritus, Rash Neurological: Reports: As per HPI. Denies: Confusion, Headache, Numbness, Paresthesias, Tingling, Tremors, Vertigo, Weakness Psychiatric: Reports: As per HPI. Denies: Anxiety, Auditory hallucinations, Depression, Homicidal thoughts Hematological/Lymphatic: Reports: As per HPI. Denies: Anemia, Blood Clots, Swollen glands Past Medical History - SOCIAL HISTORY Smoking Status: Current every day smoker Alcohol Use: None Drug Use: None - RESPIRATORY Hx Respiratory Disorders: Yes Hx Asthma: No Hx Bronchitis: No Hx COPD: Yes Hx Dyspnea: No Hx Pneumonia: No Hx Pulmonary Embolism: No Hx Sleep Apnea: No Hx of CPAP: No - CARDIOVASCULAR Hx Cardio Disorders: Yes Hx Hypertension: Yes - NEURO Hx Neuro Disorders: No - GI Hx GI Disorders: Yes Hx Abdominal Pain: Yes Hx Celiac Disease: No Hx Crohn's Disease: Yes Hx Diverticulitis: No Hx GI Bleed: No Hx Reflux: No Hx Hepatitis/Jaundice: No Hx Hiatal Hernia: No Hx Irritable Bowel: No Hx Liver Disease: No Hx Nausea/Vomiting: No Hx Obstructive Bowel: No Hx Pancreatitis: No Hx Rectal Bleeding: No Hx Ulcer: No Hx Wt Loss/Wt Gain: No Hx of Polyps: No - Hx Genitourinary Disorders: No - ENDOCRINE Hx Endocrine Disorders: No Hx Diabetes: No Hx Thyroid Disease: No - MUSCULOSKELETAL Hx Musculoskeletal Disorders: No - PSYCH Hx Psych Problems: No - HEMATOLOGY/ONCOLOGY Hx Hematology/Oncology Disorders: No Family Medical History Any Significant Family History?: No Hx Alcohol Use: Children Hx Cancer: Mother Hx Dementia: Father Hx Resp Disorders: Father Hx Seizures: Children Hx Stroke: Father Physical Exam - General Limitations: No limitations Course Vital Signs 12/22/19 12/22/19 12/22/19 15:04 16:33 18:50 Temperature 98.2 F 98.1 F Pulse Rate 98 H Pulse Rate [ 82 76 Pulse Ox Probe] Respiratory 19 16 18 Rate Blood Pressure 132/83 156/91 [Left Arm] Pulse Ox 83 L 98 96 Medical Decision Making - Lab Data Result diagrams: 12/22/19 15:20 12/22/19 15:20 Lab Results 12/22/19 12/22/19 Range/Units 15:20 15:20 WBC 3.7 L (4.2-12.2) K/uL RBC 6.02 H (3.80-5.40) M/uL Hgb 17.0 H (11.6-16.0) gm/dl Hct 52.4 H (35.0-47.0) % MCV 87.0 (81-97) fl MCH 28.2 (27-33) pg MCHC 32.4 (32-36) g/dl RDW 14.0 (11.5-14.5) % Plt Count 343 (130-400) K/uL MPV 9.1 (7.4-10.4) fl Neutrophils % 80.0 (47-80) % Eosinophils % Not Reportable Basophils % Not Reportable Absolute Neutrophils Not Reportable Lymphocytes 14.0 L (16-45) % Monocytes 6.0 (0-9) % Sodium 138 (136-145) mmol/L Potassium 3.6 (3.4-4.5) mmol/L Chloride 90 L (98-107) mmol/L Carbon Dioxide 35.0 H (22-29) mmol/L Anion Gap 13.0 (7-16) BUN 18 (8-23) mg/dL Creatinine 0.5 (0.5-0.9) mg/dL Estimated GFR > 60 mL/min Random Glucose 124 H (74-109) mg/dL Calcium 9.7 (8.8-10.2) mg/dL Total Bilirubin 0.60 (0.2-1.0) mg/dL AST 33 (10.0-35.0) U/L ALT 54 H (<33) U/L Alkaline Phosphatase 70 (35-104) U/L Total Protein 7.0 (6.6-8.7) g/dL Albumin 3.9 L (4.0-5.0) g/dL Globulin 3.1 (1.4-4.8) gm/dL Albumin/Globulin Ratio 1.3 (1.1-1.8) Disposition Disposition: Discharge Clinical Impression: Dehydration Diarrhea Qualifiers: Diarrhea type: unspecified type Qualified Code(s): R19.7 - Diarrhea, unspecified Disposition: Home, Self-Care Condition: (1) Good Instructions: Dehydration (ED), Acute Diarrhea (ED) Additional Instructions: follow up with family doctor. return sooner if worse. push fluids. eat bananas, rice, applesauce and toast Forms: Patient Portal Access Quality - Quality Measures Quality Measures: N/A - Blood Pressure Screening Does Patient Have Any of the Following: No Blood Pressure Classification: Hypertensive Reading Systolic Measurement: 156 Diastolic Measurement: 91 Screening for High Blood Pressure: < First Hypertensive BP, F/U Documented > [G8950] First Hypertensive Follow-up Interventions: Follow-up with rescreen GT 1 day and LT 4 weeks.
== END 2019-12-22 19:12 | disposition home or self-care (01) ==
LOC: ER 14:54
DX: E86.0 Dehydration (principal); R11.2 Nausea with vomiting, unspecified; R19.7 Diarrhea, unspecified
CPT/HCPCS: 80053; 85027; 89055; 96374; 99283; 99284; J2405; J7030

== ENCOUNTER 2019-12-27 21:24 | Emergency (ER) | payer MEDICARE, OTHER ==
[2019-12-27] MEDS ORDERED: IPRATROPIUM/ALBUTEROL (0.5MG/3MG) NEB INH ONE (21:30)
[2019-12-27] MEDS ORDERED: METHYLPREDNISOLONE PF 125MG/VIAL IM ONE (21:30)
--- NOTE | 2019-12-27 21:35 | Emergency Department Record ---
History of Present Illness - General Chief Complaint: Difficulty Breathing Stated Complaint: LILLY Time Seen by Provider: 12/27/19 21:25 Source: Patient Mode of Arrival: Wheelchair Limitations: No limitations - History of Present Illness Initial Comments: 63 yo female presents with cough and shortness of breath. The patient has a history of recent admissions for COPD and Influenza. She is oxygen dependent COPD. She has been home for two days since her admission. She states she has not felt well since the discharge but the shortness of breath worsened throughout the afternoon. She is a smoker. She tested positive for Influenza on 12/17/2019. No leg pain or swelling. She did have diarrhea that has stopped at this point. Jami Guthrie NP is her PCP. CXRs on the and demonstrated hyperinflation otherwise negative. She is on 2LNC as needed at home. She did not have a Flu shot this year. MD Complaint: Cough, Shortness of breath -: Days(s) Severity: Moderate Quality: Other Consistency: Intermittent Improves With: Other (cough) Worsens With: Coughing, Movement Known History Of: COPD, Other (Influenza) Context: Recent illness, Recent URI Associated Symptoms: Cough Treatments Prior to Arrival: Bronchodilator - Related Data Previous Rx's Medication Instructions Recorded Ipratropium/Albuterol [Duoneb] 3 ml INH Q4H #180 ampul.neb 01/29/18 Guaifenesin [Mucinex] 600 mg PO BID #20 tabcr 12/18/19 Levofloxacin [Levaquin] 500 mg PO DAILY #8 tab 12/18/19 Azithromycin [Zithromax] 500 mg PO DAILY 4 Days #4 tab 12/25/19 Prednisone [Prednisone 10Mg] 10 mg PO ASDIR #32 tab 12/25/19 Allergies Allergy/AdvReac Type Severity Reaction Status Date / Time penicillin V Allergy Intermediate RASH Verified 12/27/19 21:36 Review of Systems Constitutional: Denies: Chills, Fever, Malaise, Weakness Eyes: Denies: Eye discharge, Eye pain, Photophobia, Vision change ENT: Reports: Congestion Respiratory: Reports: Cough, Dyspnea, Wheezes. Denies: Hemoptysis, Stridor Cardiovascular: Denies: Chest pain, Edema, Palpitations, Syncope Endocrine: Denies: Fatigue Gastrointestinal: Denies: Abdominal pain, Diarrhea (resolved), Nausea, Vomiting Genitourinary: Denies: Dysuria Musculoskeletal: Denies: Arthralgia, Back pain, Joint swelling, Myalgia, Neck pain Skin: Denies: Bruising, Change in color, Rash Neurological: Denies: Headache Psychiatric: Denies: Anxiety Hematological/Lymphatic: Denies: Easy bleeding, Easy bruising Past Medical History - SOCIAL HISTORY Smoking Status: Current every day smoker Drug Use: None - RESPIRATORY Hx Respiratory Disorders: Yes Hx Asthma: No Hx Bronchitis: No Hx COPD: Yes Hx Dyspnea: No Hx Pneumonia: No Hx Pulmonary Embolism: No Hx Sleep Apnea: No Hx of CPAP: No - CARDIOVASCULAR Hx Cardio Disorders: Yes Hx Hypertension: Yes - NEURO Hx Neuro Disorders: No - GI Hx GI Disorders: Yes Hx Abdominal Pain: Yes Hx Celiac Disease: No Hx Crohn's Disease: Yes Hx Diverticulitis: No Hx GI Bleed: No Hx Reflux: No Hx Hepatitis/Jaundice: No Hx Hiatal Hernia: No Hx Irritable Bowel: No Hx Liver Disease: No Hx Nausea/Vomiting: No Hx Obstructive Bowel: No Hx Pancreatitis: No Hx Rectal Bleeding: No Hx Ulcer: No Hx Wt Loss/Wt Gain: No Hx of Polyps: No - Hx Genitourinary Disorders: No - ENDOCRINE Hx Endocrine Disorders: No Hx Diabetes: No Hx Thyroid Disease: No - MUSCULOSKELETAL Hx Musculoskeletal Disorders: No - PSYCH Hx Psych Problems: No - HEMATOLOGY/ONCOLOGY Hx Hematology/Oncology Disorders: No Family Medical History Hx Alcohol Use: Children Hx Cancer: Mother Hx Dementia: Father Hx Resp Disorders: Father Hx Seizures: Children Hx Stroke: Father Physical Exam - General General Appearance: Alert, Oriented x3, Cooperative, No acute distress Limitations: No limitations - Head Head exam: Atraumatic, Normal inspection - Eye Eye exam: Normal appearance, PERRL. negative: Conjunctival injection, Scleral icterus - ENT ENT exam: Normal exam, Mucous membranes moist Ear exam: Normal external inspection Nasal Exam: Normal inspection Mouth exam: Normal external inspection - Neck Neck exam: Normal inspection - Respiratory Respiratory exam: Accessory muscle use, Decreased breath sounds, Prolonged expiratory, Wheezes. negative: Normal lung sounds bilaterally, Chest wall tenderness - Cardiovascular Cardiovascular Exam: Regular rate, Normal rhythm, Normal heart sounds Peripheral Pulses: 2+: Radial (R), Radial (L) - GI/Abdominal GI/Abdominal exam: Soft. negative: Distended, Guarding, Tenderness - Rectal Rectal exam: Deferred - exam: Deferred - Extremities Extremities exam: Normal inspection. negative: Calf tenderness, Pedal edema, Tenderness - Back Back exam: Denies: CVA tenderness (R), CVA tenderness (L) - Neurological Neurological exam: Alert, Oriented X3 - Psychiatric Psychiatric exam: Normal affect, Normal mood - Skin Skin exam: Dry, Intact, Normal color, Warm Course - Reevaluation(s) Reevaluation #1: 12/27/19 21:47 The patient was rechecked after the treatment. She is on 2 LNC at 95%. Lungs are still diminished. 12/27/19 22:22 The CXR was reported and reviewed. No acute process. Hyperinflation. 12/27/19 22:26 The patient continues to due well. She is on her baseline 2 liters NC at 95%. She feels back to her baseline. I discussed OBV for her vs home and return if any concerns. She has an appointment tomorrow with Jami Guthrie NP and prefers to go home. She has a scheduled steroid taper and antibiotic. She will perform her treatments every 4 hours. She will return if the breathing changes at any point in time. 12/27/19 22:37 The labs were reviewed. No acute significant abnormalities. We discussed all the results. The patient still feels improved and is comfortable with discharge home. We discussed that she can and should return if she has any concerns with her breathing. She has follow up tomorrow that is scheduled. Medical Decision Making - Lab Data Result diagrams: 12/27/19 22:15 12/27/19 22:15 Disposition Disposition: Discharge Clinical Impression: COPD exacerbation Disposition: Home, Self-Care Condition: (1) Good Instructions: COPD (Chronic Obstructive Pulmonary Disease) (ED) Additional Instructions: Review this ER visit and the tests performed with your family doctor tomorrow as scheduled Return to the ER for a recheck immediately if worse, any new concerns or questions Take the prescriptions provided when you were discharged from the hospital Use your nebulizer every 4 hours as needed Forms: Patient Portal Access Time of Disposition: 22:39 Quality - Quality Measures Quality Measures: N/A - Blood Pressure Screening Does Patient Have Any of the Following: No Blood Pressure Classification: Hypertensive Reading Systolic Measurement: 141 Diastolic Measurement: 105 Screening for High Blood Pressure: < Pre-Hypertensive BP, F/U Documented > [G8950] Pre-Hypertensive Follow-up Interventions: Referral to alternative/primary care provider.
--- NOTE | 2019-12-27 22:15 | RADIOLOGY REPORT ---
EXAMINATION: Two View Chest Radiographs EXAM DATE: 12/27/2019 10:03 PM TECHNIQUE: Frontal and lateral views INDICATION: cough, copd COMPARISON: None ENCOUNTER: Not applicable FINDINGS: The heart, mediastinum, and pulmonary vasculature are normal. No lung consolidation or pleural effu sions are present. IMPRESSION: No acute cardiopulmonary disease is present. Dictated by: Lisa Chavez MD on 12/27/2019 10:10 PM. .
[2019-12-27 22:19] LABS: ABSOLUTE NEUTROPHIL COUNT 7.91; HEMATOCRIT 52.9 % (35.0-47.0); HEMOGLOBIN 16.9 gm/dl (11.6-16.0); MEAN CELL VOLUME 87.3 fl (81-97); MEAN CORPUSCULAR HGB CONC 31.9 g/dl (32-36); MEAN PLATELET VOLUME 8.5 fl (7.4-10.4); PLATELET COUNT 487 K/uL (130-400); RED BLOOD COUNT 6.06 M/uL (3.80-5.40); RED CELL DISTRIBUTION WIDTH 14.7 % (11.5-14.5); WHITE BLOOD COUNT W/O DIFF 11.1 K/uL (4.2-12.2)
[2019-12-27 22:24] LABS: MEAN CORPUSCULAR HEMOGLOBIN 27.8 pg (27-33)
[2019-12-27 22:28] LABS: BLOOD UREA NITROGEN 21 mg/dL (8-23); CREATININE 0.5 mg/dL (0.5-0.9); EST GLOMERULAR FILTRATION RATE > 60 mL/min
[2019-12-27 22:31] LABS: GLUCOSE,RANDOM 113 mg/dL (74-109); PARTIAL THROMBOPLASTIN TIME 24.5 SECONDS (24.5-39.1); PROTHROMBIN TIME (PATIENT) 10.2 SECONDS (9.5-12.1)
[2019-12-27 22:33] LABS: ALB/GLOB RATIO 1.5 (1.1-1.8); ALBUMIN 4.2 g/dL (4.0-5.0); ALT/SGPT 23 U/L (<33); AST/SGOT 17 U/L (10.0-35.0)
[2019-12-27 22:34] LABS: ALKALINE PHOSPHATASE 68 U/L (35-104)
[2019-12-27 22:40] LABS: ANISOCYTOSIS 1+; PLATELET ESTIMATE INCREASED (NORMAL)
== END 2019-12-27 22:55 | disposition home or self-care (01) ==
LOC: ER 21:24
DX: J44.1 Chronic obstructive pulmonary disease with (acute) exacerbation (principal); Z99.81 Dependence on supplemental oxygen; F17.210 Nicotine dependence, cigarettes, uncomplicated; I10 Essential (primary) hypertension
CPT/HCPCS: 71046; 80053; 85027; 85610; 85730; 94640; 96372; 99284; J2930